=== PATIENT | male | born 1985 | race Caucasian/White ===

== ENCOUNTER 2017-10-21 16:28 | Emergency (ER) | payer MEDICAID ==
[~2017-10-21] VITALS: Ht 188 cm; Wt 120.0 kg
[~2017-10-21 16:28] MED LIST: CLIN-80 PO
[2017-10-21] MEDS ORDERED: IBUP-1984 PO (16:36)
[2017-10-21] MEDS ORDERED: CLIN-80 PO (16:36)
[2017-10-21 17:03] VITALS: BP 161/127
== END 2017-10-21 16:50 | disposition home or self-care (01) ==
LOC: ER 16:28
DX: K08.89 Other specified disorders of teeth and supporting structures (principal)
CPT/HCPCS: 99283

== ENCOUNTER 2024-06-25 06:09 | Outpatient (CLI) | payer MEDICAID ==
[~2024-06-25 06:09] MED LIST changes: -CLIN-80 PO; +CLIN-97 PO
[2024-06-25] MEDS ORDERED: LIDOcaine 1% 30ml preserv. free vial ONE (06:38)
[2024-06-25] MEDS ORDERED: iohexol 300 MG/1 ML 50ml polymer ONE (06:38)
[2024-06-25] MEDS ORDERED: LIDOcaine 1%/PF 5ML 10 MG/ML VIAL ONE (06:38)
[2024-06-25] MEDS ORDERED: GADOTERATE MEGLUMINE 7.5 MMOL/15 ML VIAL IV ONE (06:38)
== END 2024-06-25 23:59 | disposition home or self-care (01) ==
LOC: RAD 06:09
PROVIDERS: ATTEND Family Medicine Sports Medicine
DX: S43.431A Superior glenoid labrum lesion of right shoulder, initial encounter (principal); M75.121 Complete rotator cuff tear or rupture of right shoulder, not specified as traumatic; M19.011 Primary osteoarthritis, right shoulder; M25.411 Effusion, right shoulder; M25.512 Pain in left shoulder; M75.81 Other shoulder lesions, right shoulder; X58.XXXA Exposure to other specified factors, initial encounter; Y93.89 Activity, other specified; Y92.89 Other specified places as the place of occurrence of the external cause; Y99.8 Other external cause status
CPT/HCPCS: 23350; 73222; 77002; A9575; J3490; Q9967; 73040